=== PATIENT | female | born 1965 ===

== ENCOUNTER 2020-03-22 09:23 | Outpatient (CLI) | payer OTHER | END 2020-03-22 09:30 | disposition home or self-care (01) | LOC: SONOGRAMA 09:23 | PROVIDERS: ATTEND Pathology Anatomic Pathology | DX: E04.2 Nontoxic multinodular goiter (principal) ==

== ENCOUNTER 2020-05-31 09:36 | Day surgery (SDC) | payer OTHER | END 2020-05-31 15:40 | disposition home or self-care (01) | LOC: AMB-ENDOS 09:36 | PROVIDERS: ATTEND Surgery | DX: K62.89 Other specified diseases of anus and rectum (principal); K64.8 Other hemorrhoids; Z12.11 Encounter for screening for malignant neoplasm of colon; Z20.828 Contact with and (suspected) exposure to other viral communicable diseases ==

== ENCOUNTER 2020-06-12 11:47 | Outpatient (CLI) | payer OTHER | END 2020-06-12 15:00 | disposition home or self-care (01) | LOC: PPH VACUNA 11:47 | DX: Z23 Encounter for immunization (principal) ==

== ENCOUNTER 2021-03-29 08:00 | Outpatient (CLI) | payer OTHER | END 2021-03-29 08:15 | disposition home or self-care (01) | LOC: PPH VACUNA 08:00 | PROVIDERS: ATTEND Emergency Medicine Pediatric Emergency Medicine | DX: Z23 Encounter for immunization (principal) ==

== ENCOUNTER 2021-06-17 09:51 | Outpatient (CLI) | payer OTHER | END 2021-06-17 11:23 | disposition home or self-care (01) | LOC: SONOGRAMA 09:51 | PROVIDERS: ATTEND Pathology Anatomic Pathology & Clinical Pathology | DX: D34 Benign neoplasm of thyroid gland (principal); E04.8 Other specified nontoxic goiter ==